=== PATIENT | female | born 1995 | race Caucasian/White ===

== ENCOUNTER 2020-05-27 14:52 | Outpatient (CLI) | payer OTHER, MEDICAID, SELFPAY ==
--- NOTE | 2020-05-27 15:03 | CT_ITS ---
WS: [id number] CT ABDOMEN PELVIS TECHNIQUE: Noncontrast CT of the abdomen and pelvis with coronal and sagittal reformatted images. CLINICAL INFORMATION: FLANK PAIN, LEFT COMPARISON: None. DLP: 1027.[address] scans at [facility] use at least one of these dose optimization techniques: automat ed exposure control; mA and/or kV adjustment per patient size (includes targeted exams where dose is matched to clinical indication); or iterative reconstruction. FINDINGS: Noncontrast liver is normal. Adrenal glands are normal. Gallbladder is contracted. No hydronephrosis in either kidney. Adrenal glands are normal. No obstructing renal parenchymal or ureteral calculi. Lung bases are well aerated. No evidence of high-grade small or large bowel obstruction. Normal lumba r spine. Incidental limbus vertebra L4 vertebral body. No abdominal or pelvic lymphadenopathy. No ing uinal lymphadenopathy. CT/CT kidney stone 18380 IMPRESSION: 1. No hydronephrosis in either kidney. No obstructing renal or ureteral calcul i. No renal parenchymal calculi. 2. No evidence of high-grade small or large bowel obstruction. 3. No free fluid in the pelvis. Retroverted uterus. 4. No abdominal or pelvic lymphadenopathy. 5. No other significant findings.
== END 2020-05-27 14:53 | disposition home or self-care (01) ==
PROVIDERS: PCP Family Medicine; Visit Provider Family Medicine
DX: R10.9 Unspecified abdominal pain (principal)
CPT/HCPCS: 74176

== ENCOUNTER 2022-11-30 09:01 | Emergency (ER) | payer BC, SELFPAY ==
[2022-11-30 09:23] VITALS: BP 112/75; PULSE 124; RESP 18; TEMP 37.1; O2SAT 96; BMI 22.7
[2022-11-30 10:33] LABS: Basophils % 0.1 %; Hematocrit 40.6 % (37.0-47.0); Hemoglobin 13.7 g/dL (11.5-15.3); Lymphocytes # 0.7 10^3/uL (0.8-4.8); Mean Corpuscular HGB Conc 33.7 g/dL (30.0-36.0); Mean Platelet Volume 9.4 fL (7.4-10.4); Monocytes # 0.5 10^3/uL (0.2-0.9); Monocytes % 6.7 %; Neutrophils # 6.09 10^3/uL (1.8-7.7); Neutrophils % 83.1 %; Nucleated Red Blood Cells % 0 %; Platelet Count 223 10^3/cmm (130-400); Red Blood Count 4.56 10^6/uL (4.1-5.3); Red Cell Distribution Width 12.3 % (12.1-15.1); White Blood Count 7.3 10^3/uL (4.0-10.0)
--- NOTE | 2022-11-30 10:52 | ED_ITS ---
HPI - Nausea/Vomiting/Diarrhea General: Chief complaint: Nausea/Vomiting/Diarrhea Stated complaint: N/V/D Weakness, fever Time Seen by Provider: 11/30/22 09:03 Source: patient Mode of arrival: ambulatory Limitations: no limitations History of Present Illness: Patient is a 27-year-old female presents to ED today with a complaint of nausea, vomiting, diarrhea, fevers, and generalized body aches. She states symptoms have been present over the past few days. She reports countless episodes of nonbloody emesis and stools. She states her kids had a stomach bug 3 weeks ago but has not recently been exposed to any sick contacts. Denies for food exposures. Patient denies any rashes, lesions, recent tick bites. She states she feels weak secondary to dehydration. She does not complain of any urinary symptoms or flank pain. She does state her lower back hurts. MD elicited complaint: nausea, vomiting and diarrhea Onset (ago): day(s) Description of diarrhea: watery Associated nausea: Yes Associated abdominal pain: No Severity: moderate Exacerbating factors: eating Relieving factors: none Associated symtoms: Reports nausea; Denies chest pain, dysuria or headache(s) Review of Systems Const: Reports: fever(s), chills and body aches ENMT: Denies: throat pain, odynophagia, ear or mastoid pain, nasal discharge, nasal congestion or sinus pain Card: Denies: chest pain Resp: Denies: dyspnea, productive cough or non-productive cough GI: Reports: nausea, vomiting and diarrhea; Denies: abdominal pain, hematemesis, hematochezia or melena : Denies: flank pain, difficulty voiding, dysuria, urinary frequency, urinar y urgency or urinary hesitancy Musc: Denies: neck pain, back pain, extremity pain or joint pain Skin/Breast: Denies: rash Neuro: Denies: headache(s), numbness in extremities, weakness in extremities or sensory changes PFSH ED PFSH: Surgical History Hx of appendectomy 06/2016 Social History Smoking and tobacco status: never smoked Alcohol intake: never Substance/Drug Use: never Current occupation: Works at [employer] Physical Exam Const: COMMON NORMALS: average body habitus, patient oriented x3, no limi tations, healthy appearing, alert and well nourished GENERAL APPEARANCE: cooperative and ill appearing ORIENTATION/CONSCIOUSNESS: Yes awake, Yes o riented to person, Yes oriented to place and Yes oriented to time HENMT: FACE & SINUS: normal facial exam THROAT: posterior oropharynx normal and tonsils normal Eye: COMMON NORMALS: no scleral icterus Neck/C-Spine: COMMON NORMALS: full ROM, no lymphadenopathy, supple and no meningeal signs Resp: COMMON NORMALS: normal respiratory effort and clear to auscultation bilaterally AUSCULTATION: clear to auscultation bilaterally Cardio: COMMON NORMALS: regular rate (90s on my exam) and regular rhythm RATE: regular rate (90s on my exam) RHYTHM: regular rhythm GI: COMMON NORMALS: Normal to inspection, nondistended, normoactive bowel sounds present, Soft to palpation, non-tender, No hepatosplenomegaly present and no masses PALPATION: Yes Soft to palpation and Yes No hepatosplenomegaly present : COMMON NORMALS: Yes no CVA tenderness BLADDER/KIDNEY EXAM: Yes no CVA tenderness Back/Pelvis: COMMON NORMALS: no CVA tenderness and thoracic and lumbar spine normal to inspection Extremity: COMMON NORMALS: normal to inspection GENERAL: Yes normal exam except as noted Neuro: ANDERSON COMA SCALE: document GCS findings [place] coma scale eye opening: Spontaneous [place] coma scale verbal response: Orientated [place] coma scale motor response: Obey commands [place] coma scale total score: 15 COMMON NORMALS: patient oriented x3 SENSORIUM/ORIENTATION: Yes alert, Yes oriented to person, Yes oriented to place and Yes oriented to time MENINGEAL SIGNS: Yes no meningeal signs Skin: COMMON NORMALS: no rashes or lesions noted GENERAL SKIN EXAM: no rashes or lesions noted Course Vital Signs: Vital signs: Vital Signs Temperature 98.7 F 11/30/22 09:23 Pulse Rate 92 11/30/22 12:43 Respiratory Rate 18 11/30/22 09:23 Blood Pressure 127/72 11/30/22 12:43 Pulse Oximetry 97 11/30/22 12:43 Oxygen Delivery Me thod Room Air 11/30/22 09:23 MDM - Nausea/Vomiting/Diarrhea Medical Decision Making Patient here for body aches, nausea, vomiting, diarrhea, fevers, generally feeling unwell. She complains of some lower back pain. Patient's vitals at this time are stable. She was originally tachycardic in triage but this has improved. Her orthostatics are negative. Blood work overall is unremarkable. UA suggesting infection with 3+ blood, 1+ leuks, 10-15 WBCs with bacteria and mucus. This will be cultured. Given symptoms I do want to go ahead and cover for UTI/possible early pyelonephritis. Patient was given IM Rocephin prior to discharge. She states her nausea is improved after medications given here. She has not had any active episodes of vomiting or diarrhea while here. I will go and place her on Ciprofloxacin and give her some Zofran to go home with. Recommend follow-up with her primary care provider this week and they can follo w-up on urine culture. Strict return ED precautions given. Lab Data 11/30/22 09:56 11/30/22 09:56 Laboratory Results WBC 7.3 10^3/uL (4.0-10.0) 11/30/22 09:56 RBC 4.56 10^6/uL (4.1-5.3) 11/30/22 09:56 Hgb 13.7 g/dL (11.5-15.3) 11/30/22 09:56 Hct 40.6 % (37.0-47.0) 11/30/22 09:56 MCV 89.0 fl (81-99) 11/30/22 09:56 MCH 30.0 pg (28.0-34.0) 11/30/22 09:56 MCHC 33.7 g/dL (30.0-36.0) 11/30/22 09:56 RDW 12.3 % (12.1-15.1) 11/30/22 09:56 Plt Count 223 10^3/cmm (130-400) 11/30/22 09:56 MPV 9.4 fL (7.4-10.4) 11/30/22 09:56 Neut % (Auto) 83.1 % 11/30/22 09:56 Lymph % (Auto) 10.0 % 11/30/22 09:56 [place] % (Auto) 6.7 % 11/30/22 09:56 Eos % (Auto) 0.0 % 11/30/22 09:56 Baso % (Auto) 0.1 % 11/30/22 09:56 Neut # (Auto) 6.09 10^3/uL (1.8-7.7) 11/30/22 09:56 Lymph # (Auto) 0.7 10^3/uL (0.8-4.8) L 11/30/22 09:56 [place] # (Auto) 0.5 10^3/uL (0.2-0.9) 11/30/22 09:56 Eos # (Auto) 0.0 10^3/uL (0.0-0.8) 11/30/22 09:56 Baso # (Auto) 0.0 10^3/uL (0.0-0.1) 11/30/22 09:56 Nucleated RBC % (auto) 0 % 11/30/22 09:56 Nucleated RBCs # 0.0 /100WBC 11/30/22 09:56 Sodium 136 mmol/L (136-145) 11/30/22 09:56 Potassium 3.6 mmol/L (3.5-5.1) 11/30/22 09:56 Chloride 103 mmol/L (98-107) 11/30/22 09:56 Carbon Dioxide 22 mmol/L (22-29) 11/30/22 09:56 Anion Gap 14.6 (5-19) 11/30/22 09:56 BUN 11 mg/dL (6-20) 11/30/22 09:56 Creatinine 0.7 mg/dL (0.5-0.9) 11/30/22 09:56 GFR Calculation 102.0 mL/min (90-130) 11/30/22 09:56 Glucose 102 mg/dL (65-115) 11/30/22 09:56 Calculated Osmolality 282 mOsm/kg (285-295) L 11/30/22 09:56 Calcium 8.6 mg/dL (8.5-10.5) 11/30/22 09:56 Total Bilirubin 0.6 mg/dL (0.15-1.2) 11/30/22 09:56 AST 14 U/L (0-32) 11/30/22 09:56 ALT 11 U/L (0-33) 11/30/22 09:56 Alkaline Phosphatase 47 U/L (35-105) 11/30/22 09:56 Total Protein 6.5 g/dL (6.6-8.7) L 11/30/22 09:56 Albumin 3.9 g/dL (3.5-5.2) 11/30/22 09:56 Globulin 2.6 g/dL (1.3-4.6) 11/30/22 09:56 Lipase 29 U/L (13-60) 11/30/22 09:56 HCG, Qual Negative (Negative) 11/30/22 09:56 Urine Color Yellow (Yellow) 11/30/22 11:00 Urine Appearance Hazy (CLEAR) A 11/30/22 11:00 Urine pH 5 (5-7) 11/30/22 11:00 Ur Specific [place] 1.025 (1.005-1.030) 11/30/22 11:00 Urine Protein 1+ (Negative) H 11/30/22 11:00 Urine Glucose (UA) Norm (Normal) 11/30/22 11:00 Urine Ketones 2+ (Negative) H 11/30/22 11:00 Urine Blood 3+ (Negative) H 11/30/22 11:00 Urine Nitrate Negative (Negative) 11/30/22 11:00 Urine Bilirubin 1+ (Negative) H 11/30/22 11:00 Urine Urobilinogen Norm mg/dL (Negative) 11/30/22 11:00 Ur Leukocyte Esterase 1+ (Negative) H 11/30/22 11:00 Urine RBC 5-10 /hpf (0-2) H 11/30/22 11:00 Urine WBC 10-15 /hpf (0-5) H 11/30/22 11:00 Ur Squamous Epith Cells 5-10 /hpf (0-5) H 11/30/22 11:00 Other Crystals Amm biurate /hpf 11/30/22 11:00 Amorphous Sediment Not Reportable 11/30/22 11:00 Urine Bacteria 1+ /hpf (NONE) H 11/30/22 11:00 Urine Mucus 4+ /hpf 11/30/22 11:00 Discharge Plan Discharge Patient Disposition: Home Clinical Impression: Gastroenteritis UTI (urinary tract infection) Qualifiers: Urinary tract infection type: acute cystitis Hematuria presence: with hematuria Qualified Code(s): N30.01 - Acute cystitis with hematuria Condition: Stable Prescriptions: New Cipro 500 mg tablet 500 mg PO Q12H Qty: 14 0RF ondansetron 4 mg tablet,disintegrating 4 mg PO Q8H PRN (Reason: nausea and vomiting) Qty: 14 0RF Discharge Orders: Discharge ED (Routine); Ordered 11/30/22 Ordered By: Samantha Blankenship Referrals: Reinier Perez MD [Primary Care Provider] - Activity Restrictions/Additional Instructions: As we discussed your vital signs here are stable. Blood work is unremarkable. UA suspicious for urinary tract infection. You will be placed on antibiotics to cover for a bladder/kidney infection while we await urine culture results. As we discussed please follow-up with your primary care provider by the end of the week and they can access these results. You have been given a prescription for nausea medications. You may take this medication 20 to 30 minutes before you are due to take your antibiotic to avoid vomiting it back up. As we discussed bland liquid diet and slowly advance as tolerated. You need to return to the emergency department for continued episodes of vomiting, diarrhea, fevers that cannot be controlled with Tylenol and/or Ibuprofen, severe abdominal pain or flank pain generally feeling worse or unwell, or any other concerns you may have. I hope you begin to feel better soon. Coding Level of Care Code ED [employer] Service Attendant for Sandeep Sommer
[2022-11-30 10:54] LABS: Alanine Aminotransferase 11 U/L (0-33); Albumin Level 3.9 g/dL (3.5-5.2); Alkaline Phosphatase 47 U/L (35-105); Anion Gap 14.6 (5-19); Aspartate Amino Transferase 14 U/L (0-32); Blood Urea Nitrogen 11 mg/dL (6-20); Calcium 8.6 mg/dL (8.5-10.5); Carbon Dioxide 22 mmol/L (22-29); Chloride 103 mmol/L (98-107); Globulin 2.6 g/dL (1.3-4.6); Glucose 102 mg/dL (65-115); HCG, Serum Qual Negative (Negative); Lipase 29 U/L (13-60); Osmolality Calculated 282 mOsm/kg (285-295); Potassium 3.6 mmol/L (3.5-5.1); Sodium 136 mmol/L (136-145); Total Bilirubin 0.6 mg/dL (0.15-1.2); Total Protein 6.5 g/dL (6.6-8.7)
[2022-11-30] MEDS: ondansetron 2 mg/ML SDV 2 mL 4 MG IVP (11:14)
[2022-11-30] MEDS: sodium chloride 0.9% 1,000 ML 999 ML IV (11:15)
[2022-11-30 11:18] VITALS: BP 118/71; PULSE 88; O2SAT 97
[2022-11-30 11:22] LABS: Bilirubin Urine 1+ (Negative); Blood Urine 3+ (Negative); Glucose Urine UA Norm (Normal); Ketones Urine 2+ (Negative); Nitrate Urine Negative (Negative); Protein Urine 1+ (Negative); Specific Gravity, Urine 1.025 (1.005-1.030); Urine Appearance Hazy (CLEAR); Urine Color Yellow (Yellow); pH Urine 5 (5-7)
[2022-11-30 11:23] LABS: Add Urine Microscopic? YES; Leukocyte Esterase Urine 1+ (Negative); Urobilinogen Urine Norm (Negative)
[2022-11-30 11:34] LABS: Bacteria Urine 1+ /hpf; Mucus Urine 4+ /hpf; Other Crystals Urine AMM BIURATE /hpf
[2022-11-30 11:35] LABS: Add Urine Culture? Yes
[2022-11-30 11:54] VITALS: BP 112/64; BP 115/75; BP 116/73; PULSE 102; PULSE 103; PULSE 104
[2022-11-30] MEDS: cefTRIAXone 1,000 MG in water for injection-sterile 2.1 ML 2 MG IM (12:25)
[2022-11-30 12:43] VITALS: BP 127/72; PULSE 92; O2SAT 97
== END 2022-11-30 12:44 | disposition home or self-care (01) ==
PROVIDERS: Emergency Provider Physician Assistant; PCP Family Medicine
DX: K52.9 Noninfective gastroenteritis and colitis, unspecified (principal); N30.01 Acute cystitis with hematuria
CPT/HCPCS: 36415; 80053; 81001; 83690; 84703; 85025; 87086; 96361; 96372; 96374; 99284; J0696; J2405; J7030

== ENCOUNTER → 2022-12-06 10:37 | Outpatient (BNVA) | payer BC, SELFPAY | PROVIDERS: PCP Family Medicine; Visit Provider Family Medicine | DX: J02.9 Acute pharyngitis, unspecified (principal) | CPT/HCPCS: 87880 ==

== ENCOUNTER → 2023-02-12 10:16 | Outpatient (BNVA) | payer BC, SELFPAY | PROVIDERS: PCP Family Medicine; Visit Provider Emergency Medicine | DX: J02.9 Acute pharyngitis, unspecified (principal) | CPT/HCPCS: 87071; 87880 ==

== ENCOUNTER → 2023-03-10 11:40 | Outpatient (BNVA) | payer BC, SELFPAY | PROVIDERS: PCP Family Medicine; Visit Provider Nurse Practitioner | DX: J02.9 Acute pharyngitis, unspecified (principal) | CPT/HCPCS: 87880 ==

== ENCOUNTER → 2023-08-07 11:24 | Outpatient (BNVA) | payer BC, SELFPAY | PROVIDERS: PCP Family Medicine; Visit Provider Emergency Medicine | DX: R05.9 Cough, unspecified (principal); J06.9 Acute upper respiratory infection, unspecified | CPT/HCPCS: 87400 ==

== ENCOUNTER → 2024-03-20 13:07 | Outpatient (BNVA) | payer BC, SELFPAY | PROVIDERS: PCP Family Medicine; Visit Provider Family Medicine | DX: Z00.00 Encounter for general adult medical examination without abnormal findings (principal); R53.81 Other malaise; R53.83 Other fatigue; Z51.81 Encounter for therapeutic drug level monitoring; Z13.220 Encounter for screening for lipoid disorders; E55.9 Vitamin D deficiency, unspecified | CPT/HCPCS: 80053; 80061; 82306; 84443; 85025; 87624 ==

== ENCOUNTER → 2024-11-19 09:46 | Outpatient (BNVA) | payer SELFPAY | PROVIDERS: PCP Family Medicine; Visit Provider Family Medicine | DX: J02.9 Acute pharyngitis, unspecified (principal) | CPT/HCPCS: 87071; 87880 ==

== ENCOUNTER → 2025-05-13 09:46 | Outpatient (BNVA) | payer SELFPAY | PROVIDERS: PCP Family Medicine; Visit Provider Nurse Practitioner | DX: N39.0 Urinary tract infection, site not specified (principal) | CPT/HCPCS: 81000; 87086 ==